=== PATIENT | female | born 1990 | race Caucasian/White ===

== ENCOUNTER 2023-03-16 09:45 | Outpatient (RCR) | payer BC, SELFPAY | END 2023-07-14 23:59 | disposition home or self-care (01) | PROVIDERS: PCP Family Medicine; Visit Provider Family Medicine | DX: M25.551 Pain in right hip (principal); M54.41 Lumbago with sciatica, right side; M54.2 Cervicalgia; M25.511 Pain in right shoulder; M25.512 Pain in left shoulder; M25.39 Other instability, other specified joint; M79.18 Myalgia, other site; R29.898 Other symptoms and signs involving the musculoskeletal system; Z51.89 Encounter for other specified aftercare | CPT/HCPCS: 97110; 97140; 97162 ==

== ENCOUNTER 2023-04-14 19:43 | Emergency (ER) | payer BC, SELFPAY ==
[2023-04-14 20:03] VITALS: BP 128/86; PULSE 95; RESP 20; TEMP 36.6; O2SAT 100; BMI 26.7
--- NOTE | 2023-04-14 20:37 | ED_ITS ---
HPI - General Adult General Date Seen: 04/14/23 Chief complaint: Unspecified Complaint, Adult Stated complaint: CSF leak Time Seen by Provider: 04/14/23 20:15 Source: patient Mode of arrival: ambulatory Limitations: no limitations History of Present Illness HPI narrative: Patient is a 32-year-old female presenting to the emergency department for concern for CSF leak up her left nostril. She states over the past week she has notice drainage from the nose occasionally when she leans forward. She says is clear. She went to a clinic visit and they initially thought could be a CSF leak but once they look into her nostrils she states that out sinusitis. They did not check for CSF. Patient denies any history of previous CSF leaks, no facial injuries, no nasal surgeries. Did have an MRI that showed possible abnormality well as pituitary gland. She has spoken to her neurologist about this nasal drainage and was told to not be concerned about it unless it goes on for several weeks. Related Data Home Medications Medication Instructions Recorded Confirmed norethindrone (contraceptive) 0.35 mg PO 04/14/23 mg tablet (Li) Allergies Allergy/AdvReac Type Severity Reaction Status Date / Time strawberry Allergy Severe Hives Verified 04/14/23 19:59 nirmatrelvir [From Paxlovid] Allergy Intermediate Hives Verified 04/14/23 19:59 ritonavir [From Paxlovid] Allergy Intermediate Hives Verified 04/14/23 19:59 Review of Systems Status of ROS: Reports: 10 or more systems reviewed and unremarkable except as noted in History and below Exam Narrative: Exam Narrative: Const: Well-nourished, Well-developed, in no distress Eyes: PERRL, no conjunctival injection, and symmetrical lids HENT: Atraumatic external nose and ears. Moist mucous membranes. MSK:Extremities w/o deformity, Normal Active ROM Skin: Warm, Dry. No rashes or lesions. Neuro: Normal Muscle tone, No focal neurological deficits. Psych: Awake, Alert, & Oriented x3. Appropriate mood and affect. Const: Vital Signs, click to edit/add: Vital Signs - 24 hr 04/14/23 20:03 Temperature 97.9 F Pulse Rate [Pulse Oximeter] 95 Respiratory Rate 20 Blood Pressure [Ri ght Upper Arm] 128/86 Pulse Oximetry 100 Oxygen Delivery Me thod Room Air Course Vital Signs Vital signs: Initial Vital Signs Temperature 97.9 F 04/14/23 20:03 Temperature Source Temporal Artery Scan 04/14/23 20:03 Pulse Rate 95 04/14/23 20:03 Pulse Rhythm Regular 04/14/23 20:03 Respiratory Rate 20 04/14/23 20:03 Blood Pressure 128/86 04/14/23 20:03 Blood Pressure Mean 100 04/14/23 20:03 Blood Pressure Position Sitting 04/14/23 20:03 Pulse Oximetry 100 04/14/23 20:03 Oxygen Delivery Method Room Air 04/14/23 20:03 Vital Signs Temperature 97.9 F 04/14/23 20:03 Pulse Rate 95 04/14/23 20:03 Respiratory Rate 20 04/14/23 20:03 Blood Pressure 128/86 04/14/23 20:03 Pulse Oximetry 100 04/14/23 20:03 Oxygen Delivery Method Room Air 04/14/23 20:03 Temperature 97.9 F 04/14/23 20:03 Pulse Rate 95 04/14/23 20:03 Respiratory Rate 20 04/14/23 20:03 Blood Pressure 128/86 04/14/23 20:03 Pulse Oximetry 100 04/14/23 20:03 Oxygen Delivery Method Room Air 04/14/23 20:03 Medical Decision Making MDM Narrative Medical decision making narrative: Patient is a 32-year-old female presented emergency department for concern for CSF leak. She has no risk factors for CSF leak and this seems very unlikely at this time. I did speak to our lab we are unable to test for CSF and this h ospital. I informed her of this. Also informed her this is very unlikely to be any kind of CSF leak considering her history. She states she understands and asked if I know what hospitalist do test for it. I told her I do not know. She will be discharged home. She has no further question Discharge Plan Discharge Clinical Impression: Nasal drainage Patient Disposition: Home, Self-Care Condition: Stable Additional Instructions: If he continued to be concerned about this you can talk to her neurologist about getting tested for CSF. Prescriptions: No Action norethindrone (contraceptive) [Li] 0.35 mg tablet PO Follow Up/Referrals: Jennifer Vega DO [Primary Care Provider] - Stand Alone Forms: Wit studioth Info Instructions
== END 2023-04-14 20:48 | disposition home or self-care (01) ==
LOC: ED 20:46
PROVIDERS: Emergency Provider Student in an Organized Health Care Education/Training Program; PCP Family Medicine
DX: R09.82 Postnasal drip (principal)
CPT/HCPCS: 95992; 99282; 99283